=== PATIENT | female | born 1965 | race Caucasian/White ===

== ENCOUNTER 2023-10-13 18:07 | Emergency (ER) | payer OTHER ==
[2023-10-13] MEDS ORDERED: KETOROLAC 30 MG/ML INJ ONE (18:46)
[2023-10-13] MEDS ORDERED: DIAZEPAM 5 MG TABLET ONE (18:47)
--- NOTE | 2023-10-13 19:45 | ER ---
Nurse's Notes [facility] Name: Zaria Rothman Age: 58 yrs Sex: Female : 1965 Arrival Date: 10/13/2023 Time: 18:07 Bed 19 Private MD: Diagnosis: Strain of muscle, fascia and tendon of right hip Presentation: 10/12 18:18 Chief complaint: Patient states: Pt c/o pain rt groin and difficulty walking x1 week dd2 ago. Coronavirus screen: At this time, the client does not indicate any symptoms associated with coronavirus-19. Ebola Screen: No symptoms or risks identified at this time. Initial Sepsis Screen: Does the patient meet any 2 criteria? No. Patient's initial sepsis screen is negative. Does the patient have a suspected source of infection? No. Patient's initial sepsis screen is negative. Risk Assessment: Do you want to hurt yourself or someone else? Patient reports no desire to harm self or others. Onset of symptoms is unknown. 18:18 Method Of Arrival: Ambulatory dd2 18:18 Acuity: AGATHA 3 dd2 18:24 Chief complaint:. dd2 Triage Assessment: 18:24 General: Appears in no apparent distress. Behavior is calm, cooperative. Pain: dd2 Complains of pain in right groin. Historical: - Allergies: 18:24 Dilaudid (doesn't like med); dd2 - Home Meds: 18:24 None [Active]; dd2 - PMHx: 18:24 None; dd2 - PSHx: 18:24 None; dd2 - Immunization history:: Adult Immunizations unknown. - Infectious Disease History:: Denies. - Social history:: Smoking status: Patient reports the use of cigarette tobacco products, smokes one pack cigarettes per day. Screenin:57 [facility] [place] ED Fall Risk Assessment (Adult) History of falling in the last 3 months, kc6 including since admission No falls in past 3 months (0 pts) Confusion or Disorientation No (0 pts) Intoxicated or Sedated No (0 pts) Impaired Gait No (0 pts) Mobility Assist Device Used No (0 pt) Altered Elimination No (0 pt) Score/Fall Risk Level 0 - 2 = Low Risk. Abuse screen: Denies threats or abuse. Denies injuries from another. Nutritional screening: No deficits noted. Tuberculosis screening: No symptoms or risk factors identified. Assessment: 18:57 General: Appears in no apparent distress. comfortable, well groomed, well developed, kc6 Behavior is calm, cooperative, appropriate for age. Pain: Complains of pain in right femoral area and right hip. Neuro: Level of Consciousness is awake, alert, obeys commands, Oriented to person, place, time, situation, Appropriate for age. Cardiovascular: Capillary refill < 3 seconds. Respiratory: Airway is patent Trachea midline Respiratory effort is even, unlabored, Respiratory pattern is regular, symmetrical. GI: No signs and/or symptoms were reported involving the gastrointestinal system. : No signs and/or symptoms were reported regarding the genitourinary system. EENT: No signs and/or symptoms were reported regarding the EENT system. Derm: No signs and/or symptoms reported regarding the dermatologic system. Skin is intact, is healthy with good turgor, Skin is pink, warm \T\ dry. Musculoskeletal: No signs and/or symptoms reported regarding the musculoskeletal system. Circulation, motion, and sensation intact. Capillary refill < 3 seconds, Range of motion: intact in all extremities. Vital Signs: 18:18 BP 167 / 80; Pulse 81; Resp 16; Temp 97.1; Pulse Ox 98% ; Weight 87.09 kg; Height 5 ft. dd2 7 in. ; 18:59 BP 154 / 83; kc6 18:18 Body Mass Index 30.07 (87.09 kg, 170.18 cm) dd2 ED Course: 18:09 Patient arrived in ED. ra3 18:19 David Smyth DO is Attending Physician. ms3 18:24 Triage completed. dd2 18:24 Arm band placed on right wrist. Patient placed in an exam room, on a stretcher, on dd2 pulse oximetry, Patient notified of wait time. 18:28 Rin Brown, CECI is Primary Nurse. kc6 18:57 Patient has correct armband on for positive identification. Bed in low position. Call kc6 light in reach. Side rails up X 1. Pulse ox on. NIBP on. Pillow given. 19:52 No provider procedures requiring assistance completed. Patient did not have IV access kc6 during this emergency room visit. Administered Medications: 18:57 Drug: Diazepam PO 10 mg PO once Route: PO; kc6 19:39 Follow up: Response: No adverse reaction; RASS: Alert and Calm (0) kc6 18:57 Drug: Ketorolac IM 15 mg IM once Route: IM; Site: left deltoid; kc6 19:39 Follow up: Response: No adverse reaction kc6 Medication: 19:52 VIS not applicable for this client. kc6 Outcome: 19:45 Discharge ordered by . ms3 19:52 Discharged to home via wheelchair, with family, kc6 19:52 Condition: good 19:52 Discharge instructions given to patient, Instructed on discharge instructions, follow up and referral plans. no drinking with medication, no driving heavy equipment, medication usage, Demonstrated understanding of instructions, follow-up care, medications, Prescriptions given X 2, 19:52 Patient left the ED. kc6 Signatures: David Smyth DO DO ms3 Rin Brown, RN RN kc6 Gabby Teague ra3 CHERYL PHILLIP RN RN dd2 Corrections: (The following items were deleted from the chart) 18:26 18:18 Chief complaint: Patient states: Pt c/o pain rt leg and difficulty walking x1 dd2 week ago dd2
--- NOTE | 2023-10-13 19:45 | EDPHYS ---
Physician Documentation [facility] Name: Zaria Rothman Age: 58 yrs Sex: Female : 1965 Arrival Date: 10/13/2023 Time: 18:07 Bed 19 Private MD: ED Physician David Smyth HPI: 10/12 20:41 This 58 yrs old Female presents to ER via Ambulatory with complaints of trouble walking.ms3 20:41 58-year-old female with no past medical history presents to the emergency department ms3 for right groin and back pain that is been ongoing for 1 week. Patient states the discomfort began after exercising in a pool. Patient rates her discomfort a 9/10. She denies any alleviating factors.. Historical: - Allergies: 18:24 Dilaudid (doesn't like med); dd2 - Home Meds: 18:24 None [Active]; dd2 - PMHx: 18:24 None; dd2 - PSHx: 18:24 None; dd2 - Immunization history:: Adult Immunizations unknown. - Infectious Disease History:: Denies. - Social history:: Smoking status: Patient reports the use of cigarette tobacco products, smokes one pack cigarettes per day. ROS: 20:41 Constitutional: Negative for fever, and chills. Cardiovascular: Negative for chest ms3 pain, and palpitations. Respiratory: Negative for shortness of breath, cough, wheezing, and pleuritic chest pain, Abdomen/GI: Negative for abdominal pain, nausea, vomiting, diarrhea, and constipation, 20:41 MS/extremity: Positive for pain, of the right femoral area, Exam: 20:41 Constitutional: This is a well developed, well nourished patient who is awake, alert, ms3 and in no acute distress. Neck: Trachea midline, no cervical lymphadenopathy. Supple, full range of motion without nuchal rigidity, or vertebral point tenderness. No Meningismus. Chest/axilla: Normal chest wall appearance and motion. Nontender with no deformity. Cardiovascular: Regular rate and rhythm with a normal S1 and S2. No gallops, murmurs, or rubs. Normal PMI, no JVD. No pulse deficits. Respiratory: Lungs have equal breath sounds bilaterally, clear to auscultation and percussion. No rales, rhonchi or wheezes noted. No increased work of breathing, no retractions or nasal flaring. Abdomen/GI: Soft, non-tender, with normal bowel sounds. No distension or tympany. No guarding or rebound. No evidence of tenderness throughout. Skin: Warm, dry with normal turgor. Normal color with no rashes, no lesions, and no evidence of cellulitis. 20:41 Musculoskeletal/extremity: Extremities: noted in the right hip: pain, tenderness, There is no evidence of swelling, Vital Signs: 18:18 BP 167 / 80; Pulse 81; Resp 16; Temp 97.1; Pulse Ox 98% ; Weight 87.09 kg; Height 5 ft. dd2 7 in. ; 18:59 BP 154 / 83; kc6 18:18 Body Mass Index 30.07 (87.09 kg, 170.18 cm) dd2 MDM: 18:57 Patient medically screened. ms3 20:41 Differential diagnosis: bursitis, arthritis, strain. Data reviewed: vital signs, nurses ms3 notes, and as a result, I will discharge patient. I considered the following discharge prescriptions or medication management in the emergency department Medications were administered in the Emergency Department. See MAR. Counseling: I had a detailed discussion with the patient and/or guardian regarding the historical points, exam findings, and any diagnostic results supporting the discharge/admit diagnosis, the need for outpatient follow up, to return to the emergency department if symptoms worsen or persist or if there are any questions or concerns that arise at home. ED course: Discussed physical exam findings with patient. Patient understands agrees with plan to follow-up with primary care physician in 2 to 3 days. All questions were answered. Return precautions discussed include worsening symptoms, fevers, or any other concerns. On reevaluation patient symptoms have improved, patient is alert and oriented x 4, no apparent distress, nontoxic-appearing. Administered Medications: 18:57 Drug: Diazepam PO 10 mg PO once Route: PO; kc6 19:39 Follow up: Response: No adverse reaction; RASS: Alert and Calm (0) [facility] 18:57 Drug: Ketorolac IM 15 mg IM once Route: IM; Site: left deltoid; kc6 19:39 Follow up: Response: No adverse reaction [facility] Disposition Summary: 10/13/23 19:45 Discharge Ordered Notes: Location: Home ms3 Condition: Stable ms3 Diagnosis - Strain of muscle, fascia and tendon of right hip ms3 Discharge Instructions: - Discharge Summary Sheet ms3 - Muscle Strain ms3 - Muscle Strain, [id number] ms3 Forms: - Medication Reconciliation Form ms3 - Antibiotic Education ms3 - Prescription Opioid Use ms3 - Patient Portal Instructions ms3 - Leadership Thank You Letter ms3 Prescriptions: - Ibuprofen 600 mg Oral Tablet - take 1 tablet ORAL route every 6 hours As needed take with food; 30 tablet; ms3 Refills: 0, Product Selection Permitted - Cyclobenzaprine 10 mg Oral Tablet - take 1 tablet ORAL route every 8 hours As needed; 30 tablet; Refills: 0, ms3 Product Selection Permitted Signatures: David Smyth DO DO ms3 Rin Brown RN RN kc6 CHERYL PHILLIP RN RN dd2
[2023-10-13 19:58] VITALS: TEMP 97.1; O2SAT 98
[2023-10-13 19:59] VITALS: BP 154/83
== END 2023-10-13 19:52 | disposition home or self-care (01) ==
LOC: ER 18:07
DX: S76.011A Strain of muscle, fascia and tendon of right hip, initial encounter (principal); F17.210 Nicotine dependence, cigarettes, uncomplicated